=== PATIENT | male | born 1970 | race Caucasian/White ===

== ENCOUNTER 2022-04-21 08:46 | Outpatient (CLI) | payer BC | END 2022-04-21 08:47 | disposition home or self-care (01) | LOC: CT 08:46 | PROVIDERS: ATTEND Urology | DX: C61 Malignant neoplasm of prostate (principal) | CPT/HCPCS: 74177; 78306; A9503 ==

== ENCOUNTER 2022-08-11 02:07 | Emergency (ER) | payer BC, OTHER ==
[2022-08-11 03:39] LABS: #Basophils 0.1 thou/uL (0.0-0.2); #Eosinphils 0.1 thou/uL (0.0-0.7); #Lymphocytes 1.1 thou/uL (1.20-3.40); #Monocytes 0.4 thou/uL (0.11-0.59); #Neutrophils 4.4 thou/uL (1.40-6.50); %Basophils 0.9 % (0.0-1.0); %Eosinophils 1.2 % (0.0-10.0); %Lymphocytes 18.7 % (21.0-51.0); %Monocytes 6.9 % (0.0-10.0); %Neutrophils 72.3 % (42.0-75.0); Hemoglobin 12.6 g/dL (14.0-18.0); Mean Corpuscular HGB CONC 32.8 g/dL (32.0-36.0); Mean Corpuscular Hemoglobin 29.6 pg (27.0-31.0); Mean Corpuscular Volume 90.1 fl (78.0-98.0); Mean Platelet Volume 7.7 fL (7.4-10.4); Platelet Count 203 10x3/uL (130-400); RBC Distribution Width 13.1 % (11.5-14.5); Red Blood Cell (RBC) Count 4.24 mill/uL (4.70-6.10)
[2022-08-11 04:03] LABS: ALT (SGPT) 14 U/L (8-55); AST (SGOT) 16 U/L (5-34); Albumin 3.8 g/dL (3.5-5.0); Alkaline Phosphatase 76 U/L (40-110); Anion Gap 12 mmol/L (10-20); BUN (Urea Nitrogen) 12 mg/dL (8.4-25.7); Bilirubin, Total 0.9 mg/dL (0.2-1.2); Calc. Creatinine Clearance 0 mL/min (70-130); Calcium 8.9 mg/dL (7.8-10.44); Carbon Dioxide 23 mmol/L (22-29); Chloride 108 mmol/L (98-107); Estimated GFR 106; Globulin 2.8 g/dL (2.4-3.5); Glucose 115 mg/dL (70-105); Potassium 4.1 mmol/L (3.5-5.1); Protein, Total 6.6 g/dL (6.0-8.3); Sodium 139 mmol/L (136-145)
[2022-08-11 06:46] LABS: Bacteria/HPF 2+ HPF (None Seen); Bilirubin Negative (Negative); Blood, Urine 3+ (Negative); Clarity Turbid (Clear); Glucose, Urine (Dipstick) Normal (Negative); Ketone, Urine Negative (Negative); Leukocyte 250 Leu/uL (Negative); Mucous/LPF 4+ LPF (<2+); Nitrite Negative (Negative); Protein, Urine (Dipstick) 200 mg/dL (Neg-Trace); RBC/HPF Greater than 50 HPF (0-3); Specific Gravity, Urine 1.025 (1.002-1.036); Squamous Epithelial None Seen HPF (0-3); Urobilinogen Normal mg/dL (Less than 2); WBC/HPF Greater than 50 HPF (0-3)
== END 2022-08-11 07:40 | disposition home or self-care (01) ==
LOC: ERS 02:07
DX: T83.018A Breakdown (mechanical) of other urinary catheter, initial encounter (principal); N39.0 Urinary tract infection, site not specified
CPT/HCPCS: 36415; 51700; 72192; 80053; 81003; 81015; 85025; 87086

== ENCOUNTER 2022-08-17 00:47 | Emergency (ER) | payer OTHER | END 2022-08-17 03:00 | disposition home or self-care (01) | LOC: ERS 00:47 | DX: T83.098A Other mechanical complication of other urinary catheter, initial encounter (principal) | CPT/HCPCS: 51700 ==

== ENCOUNTER 2023-05-12 10:17 | Outpatient (CLI) | payer OTHER ==
[2023-05-12 11:29] LABS: #Eosinphils 0.1 10x3/uL (0.0-0.5); #Monocytes 0.5 10x3/uL (0.0-1.1); #Neutrophils 4.4 10x3/uL (1.5-8.4); %Basophils 0.4 % (0.0-2.0); %Eosinophils 0.9 % (0.0-6.0); %Lymphocytes 28.8 % (18.0-47.0); %Monocytes 7.2 % (0.0-10.0); %Neutrophils 62.6 % (40.0-75.0); Hematocrit 47.6 % (38.8-50.0); Hemoglobin 16.3 g/dL (13.5-17.5); Mean Corpuscular HGB CONC 34.2 g/dL (32.0-36.0); Mean Corpuscular Hemoglobin 28.8 pg (27.0-33.0); Mean Corpuscular Volume 84.1 fl (81.2-95.1); Mean Platelet Volume 10.9 fl (7.4-10.4); Platelet Count 191 10x3/uL (150-450); RBC Distribution Width 12.7 % (11.5-14.5); Red Blood Cell (RBC) Count 5.66 10x6/uL (4.32-5.72)
[2023-05-12 11:44] LABS: ALT (SGPT) 18 U/L (8-55); AST (SGOT) 15 U/L (5-34); Albumin 4.4 g/dL (3.5-5.0); Alkaline Phosphatase 64 U/L (40-110); Anion Gap 13 mmol/L (10-20); BUN (Urea Nitrogen) 12 mg/dL (8.4-25.7); Bilirubin, Total 2.5 mg/dL (0.2-1.2); Calc. Creatinine Clearance 0 mL/min (70-130); Calcium 9.6 mg/dL (7.8-10.44); Carbon Dioxide 27 mmol/L (22-29); Chloride 102 mmol/L (98-107); Estimated GFR 107; Globulin 2.6 g/dL (2.4-3.5); Glucose 91 mg/dL (70-105); Potassium 4.5 mmol/L (3.5-5.1); Sodium 137 mmol/L (136-145)
== END 2023-05-12 10:18 | disposition home or self-care (01) ==
LOC: LABBT 10:17
PROVIDERS: ATTEND Surgery
DX: Z01.818 Encounter for other preprocedural examination (principal); K42.9 Umbilical hernia without obstruction or gangrene; K43.9 Ventral hernia without obstruction or gangrene
CPT/HCPCS: 80053; 85025; 93005; 93010

== ENCOUNTER 2023-05-15 10:08 | Day surgery (SDC) | payer OTHER ==
[2023-05-12 10:48] VITALS: BMI 25.1
[2023-05-15] MEDS ORDERED: PROPOFOL 0 ML ONE (11:22)
[2023-05-15] MEDS ORDERED: Rocuronium Bromide 10 MG/ML (10ML VIAL) ONE ×3 (11:22→12:58)
[2023-05-15] MEDS ORDERED: Lidocaine 1% PF 5 ML VIAL ONE ×3 (11:22→12:58)
[2023-05-15] MEDS ORDERED: Bupivacaine 0.25% HCL 30 ML VIAL ONE (12:38)
[2023-05-15] MEDS ORDERED: PROPOFOL 20 ML ONE (12:38)
[2023-05-15] MEDS ORDERED: SUGAMMADEX SODIUM 200 MG/2 ML VIAL ONE (12:38)
[2023-05-15] MEDS ORDERED: Dexamethasone 4 mg/ml Vial ONE (12:38)
[2023-05-15] MEDS ORDERED: fentaNYL PF 100 MCG/2 ML SYRINGE ONE ×2 (12:38→12:58)
[2023-05-15] MEDS ORDERED: EPINEPHrine 1 MG/ML VIAL ONE (12:38)
[2023-05-15] MEDS ORDERED: Ondansetron PF 4 MG/2 ML Vial ONE ×2 (12:38→12:58)
[2023-05-15] MEDS ORDERED: CEFAZOLIN 2 GM VIAL ONE (12:46)
[2023-05-15] MEDS ORDERED: Sodium Chloride 0.9% 100 ML ONE (12:46)
[2023-05-15] MEDS ORDERED: NEOSTIGMINE 3 MG/3 ML SYR 3 MG/3 ML SYRINGE ONE ×2 (12:58→13:59)
[2023-05-15] MEDS ORDERED: PROPOFOL 200 MG/20 ML VIAL ONE (12:58)
[2023-05-15] MEDS ORDERED: Dexamethasone 20 MG/5 ML VIAL ONE (12:58)
[2023-05-15] MEDS ORDERED: Glycopyrrolate 0.2 MG/ML 5 ML SYRINGE ONE ×2 (12:58→13:59)
[2023-05-15] MEDS ORDERED: Ketorolac Tromethamine 30 MG/ML VIAL ONE ×2 (12:58→14:01)
[2023-05-15] MEDS ORDERED: Meperidine HCl/PF 25 MG/ML VIAL ONE (14:25)
[2023-05-15] MEDS ORDERED: fentaNYL 50 mcg/mL 1 mL Vial ONE ×3 (14:40→17:49)
[2023-05-15] MEDS ORDERED: Acetaminophen 325 MG TAB ONE (18:28)
== END 2023-05-15 19:33 | disposition home or self-care (01) ==
LOC: SDC 10:08
PROVIDERS: ATTEND Surgery
PROC: 0WUF4JZ Supplement Abdominal Wall with Synthetic Substitute, Percutaneous Endoscopic Approach (ICD-10-PCS; principal; 2023-05-15)
DX: K43.2 Incisional hernia without obstruction or gangrene (principal); K43.9 Ventral hernia without obstruction or gangrene
CPT/HCPCS: C1781; J0171; J1100; J1885; J2175; J2405; J2704; J3010; J3490; S0020

== ENCOUNTER 2023-07-23 16:42 | Emergency (ER) | payer OTHER ==
[2023-07-23 17:15] LABS: #Eosinphils 0.1 thou/uL (0.0-0.7); #Monocytes 0.3 thou/uL (0.11-0.59); %Basophils 0.3 % (0.0-1.0); %Eosinophils 1.8 % (0.0-10.0); %Lymphocytes 28.9 % (21.0-51.0); %Monocytes 5.4 % (0.0-10.0); %Neutrophils 63.3 % (42.0-75.0); Hematocrit 46.5 % (42.0-52.0); Hemoglobin 16.2 g/dL (14.0-18.0); Mean Corpuscular HGB CONC 34.8 g/dL (32.0-36.0); Mean Corpuscular Hemoglobin 29.1 pg (27.0-31.0); Mean Corpuscular Volume 83.5 fl (78.0-98.0); Mean Platelet Volume 10.5 fL (7.4-10.4); Platelet Count 198 10x3/uL (130-400); RBC Distribution Width 12.5 % (11.5-14.5); Red Blood Cell (RBC) Count 5.57 mill/uL (4.70-6.10); White Blood Cell (WBC) Count 6.3 10x3/uL (4.8-10.8)
[2023-07-23 17:37] LABS: ALT (SGPT) 26 U/L (8-55); AST (SGOT) 47 U/L (5-34); Albumin 4.4 g/dL (3.5-5.0); Alkaline Phosphatase 77 U/L (40-110); Anion Gap 14 mmol/L (10-20); BUN (Urea Nitrogen) 13 mg/dL (8.4-25.7); Bilirubin, Total 2.5 mg/dL (0.2-1.2); Calc. Creatinine Clearance 0 mL/min (70-130); Calcium 9.4 mg/dL (7.8-10.44); Carbon Dioxide 25 mmol/L (22-29); Chloride 105 mmol/L (98-107); Estimated GFR 104; Globulin 2.6 g/dL (2.4-3.5); Glucose 119 mg/dL (70-105); Lipase 70 U/L (8-78); Potassium 3.8 mmol/L (3.5-5.1); Sodium 140 mmol/L (136-145)
[2023-07-23 17:40] LABS: Troponin I 0.015 ng/mL (< 0.028)
[2023-07-23 18:14] LABS: Bacteria/HPF None Seen HPF (None Seen); Bilirubin Negative (Negative); Blood, Urine Negative (Negative); Glucose, Urine (Dipstick) Normal (Negative); Ketone, Urine Negative (Negative); Leukocyte Negative Leu/uL (Negative); Nitrite Negative (Negative); Protein, Urine (Dipstick) 10 mg/dL (Neg-Trace); RBC/HPF 0-3 HPF (0-3); Specific Gravity, Urine 1.026 (1.002-1.036); Squamous Epithelial None Seen HPF (0-3); WBC/HPF 0-3 HPF (0-3); pH, Urine 6.5 (5.0-9.0)
[2023-07-23 18:19] LABS: Clarity Slightly Cloudy (Clear)
[2023-07-23] MEDS ORDERED: Famotidine/PF 20 mg/2ml Vial ONE (18:39)
[2023-07-23] MEDS ORDERED: Ketorolac Tromethamine 30 MG (1 mL) VIAL ONE ×2 (18:39→21:00)
[2023-07-23] MEDS ORDERED: diphenhydrAMINE 50 MG/ML VIAL ONE (18:40)
[2023-07-23] MEDS ORDERED: methylPREDNISolone Sod Succ 40 MG VIAL ONE (18:40)
[2023-07-23 22:20] LABS: Troponin I 0.011 ng/mL (< 0.028)
== END 2023-07-23 22:51 | disposition home or self-care (01) ==
LOC: ERS 16:42
DX: R07.9 Chest pain, unspecified (principal); M54.6 Pain in thoracic spine
CPT/HCPCS: 36415; 71045; 71275; 80053; 81001; 83690; 83880; 84484; 85025; 93005; 96374; 96375; 96376; J1200; J1885; J2920; S0028

== ENCOUNTER 2023-12-19 07:47 | Outpatient (CLI) | payer OTHER ==
[2023-12-19] MEDS ORDERED: Iopamidol 370 76% 100 ML VIAL ONE (12:51)
== END 2023-12-19 07:48 | disposition home or self-care (01) ==
LOC: CT 07:47
PROVIDERS: ATTEND Surgery
DX: K43.2 Incisional hernia without obstruction or gangrene (principal); K42.9 Umbilical hernia without obstruction or gangrene
CPT/HCPCS: 74177; Q9967

== ENCOUNTER 2024-01-04 11:09 | Outpatient (CLI) | payer OTHER ==
[2024-01-04 12:02] LABS: #Basophils 0.03 10x3/uL (0.0-0.2); #Eosinphils 0.05 10x3/uL (0.0-0.5); #Monocytes 0.39 10x3/uL (0.0-1.1); #Neutrophils 3.34 10x3/uL (1.5-8.4); %Basophils 0.5 % (0.0-2.0); %Eosinophils 0.9 % (0.0-6.0); %Lymphocytes 32.3 % (18.0-47.0); %Monocytes 6.9 % (0.0-10.0); Hematocrit 46.6 % (38.8-50.0); Hemoglobin 16.5 g/dL (13.5-17.5); Mean Corpuscular HGB CONC 35.4 g/dL (32.0-36.0); Mean Corpuscular Hemoglobin 29.8 pg (27.0-33.0); Mean Corpuscular Volume 84.3 fL (81.2-95.1); Mean Platelet Volume 10.9 fL (7.4-10.4); Platelet Count 166 10x3/uL (150-450); RBC Distribution Width 12.8 % (11.5-14.5); Red Blood Cell (RBC) Count 5.53 10x6/uL (4.32-5.72); White Blood Cell (WBC) Count 5.7 10x3/uL (3.5-10.5)
[2024-01-04 12:15] LABS: ALT (SGPT) 10 U/L (8-55); AST (SGOT) 14 U/L (5-34); Albumin 4.2 g/dL (3.5-5.0); Alkaline Phosphatase 62 U/L (40-110); Anion Gap 12 mmol/L (10-20); BUN (Urea Nitrogen) 8 mg/dL (8.4-25.7); Bilirubin, Total 2.2 mg/dL (0.2-1.2); Calc. Creatinine Clearance 0 mL/min (70-130); Calcium 9.3 mg/dL (7.8-10.44); Carbon Dioxide 26 mmol/L (22-29); Chloride 107 mmol/L (98-107); Estimated GFR 104; Globulin 2.6 g/dL (2.4-3.5); Glucose 95 mg/dL (70-105); Potassium 4.5 mmol/L (3.5-5.1); Protein, Total 6.8 g/dL (6.0-8.3); Sodium 140 mmol/L (136-145)
== END 2024-01-04 11:10 | disposition home or self-care (01) ==
LOC: LABBT 11:09
PROVIDERS: ATTEND Surgery
DX: Z01.812 Encounter for preprocedural laboratory examination (principal); K43.2 Incisional hernia without obstruction or gangrene
CPT/HCPCS: 80053; 85025

== ENCOUNTER 2024-01-08 06:16 | Day surgery (SDC) | payer OTHER ==
[2024-01-04 11:34] VITALS: BMI 25.0
[2024-01-08] MEDS ORDERED: Lidocaine 1% PF 5 ML VIAL ONE (06:23)
[2024-01-08] MEDS ORDERED: fentaNYL PF 100 MCG/2 ML SYRINGE ONE (06:23)
[2024-01-08] MEDS ORDERED: PROPOFOL 40 ML ONE (06:23)
[2024-01-08] MEDS ORDERED: Sodium Chloride 0.9% 100 ML ONE ×2 (06:30→07:55)
[2024-01-08] MEDS ORDERED: CEFAZOLIN 2 GM VIAL ONE (06:30)
[2024-01-08] MEDS ORDERED: EPINEPHrine 1 MG/ML VIAL ONE (06:52)
[2024-01-08] MEDS ORDERED: Lidocaine 2% PF 5 ML VIAL ONE (06:52)
[2024-01-08] MEDS ORDERED: Bupivacaine 0.25% HCL 30 ML VIAL ONE (06:52)
[2024-01-08] MEDS ORDERED: Rocuronium Bromide 10 MG/ML (10ML VIAL) ONE (07:48)
[2024-01-08] MEDS ORDERED: Dexmedetomidine 200 MCG/2 ML VIAL ONE (07:55)
[2024-01-08] MEDS ORDERED: Dexamethasone 4 mg/ml Vial ONE (07:55)
[2024-01-08] MEDS ORDERED: Ketorolac Tromethamine 30 MG (1 mL) VIAL ONE (08:13)
[2024-01-08] MEDS ORDERED: Ondansetron PF 4 MG/2 ML Vial ONE (08:13)
[2024-01-08] MEDS ORDERED: SUGAMMADEX SODIUM 200 MG/2 ML VIAL ONE (08:14)
[2024-01-08] MEDS ORDERED: HYDROmorphone 0.5 MG/0.5 ML SYRINGE ONE (08:46)
== END 2024-01-08 11:20 | disposition home or self-care (01) ==
LOC: SDC 06:16
PROVIDERS: ATTEND Surgery
PROC: 0WUF0JZ Supplement Abdominal Wall with Synthetic Substitute, Open Approach (ICD-10-PCS; principal; 2024-01-08)
DX: K43.2 Incisional hernia without obstruction or gangrene (principal); Z98.890 Other specified postprocedural states; M19.90 Unspecified osteoarthritis, unspecified site; C61 Malignant neoplasm of prostate; Z79.899 Other long term (current) drug therapy; Z91.041 Radiographic dye allergy status
CPT/HCPCS: A6258; J0171; J0665; J1100; J1170; J1885; J2001; J2405; J2704